=== PATIENT | female | born 1985 | race Caucasian/White ===

== ENCOUNTER 2018-08-07 20:06 | Inpatient (IN) | payer OTHER ==
[~2018-08-07] VITALS: Ht 167.6 cm; Wt 63.0 kg
--- NOTE | ~2018-08-07 | HC ---
[facility] [place] [address] CONSULTATION Name: DIANE SALEH Room #: 356-P ADM IN M.R.#: [id number] Admission: 08/08/18 Attend Phys: Ju Meehan Discharge: Date of : 89 Report #: [id number] THIS REPORT FOR: //name// CC: Ju Meehan NO PCP DATE OF SERVICE: 08/09/2018 CHIEF COMPLAINT: Ulceration of the right lower extremity with surrounding cellulitis. HISTORY OF PRESENT ILLNESS: This is a 33-year-old female patient who was seen and evaluated in the Emergency Department and she complained initially of insect bite that had become infected. However, it has later been reported that she was suffering from suicidal ideations and then tented an overdose injecting methamphetamine and heroin into her right calf. She has developed fever, cellulitis and ulceration. I have been asked to see her with regard to wound care. ALLERGIES: To TYLENOL, AMOXICILLIN and PERTUSSIS VACCINE. MEDICATIONS: On her MAR reviewed. PAST MEDICAL HISTORY: Per history of anxiety, depression, ADHD and PTSD, asthma, gestational diabetes and scoliosis. SOCIAL HISTORY: Positive for cigarettes. No recent alcohol use some drug use noted. Although she is not very forthcoming regarding this at this time. REVIEW OF SYSTEMS: CONSTITUTIONAL: The patient does complain of fever or chills. Denies recent weight loss. NEUROLOGICAL: The patient denies focal weakness, numbness or tingling. EYES: The patient denies visual changes, redness or drainage. EARS, NOSE AND THROAT: The patient denies earache, nasal drainage or sore throat. CARDIOVASCULAR: The patient denies chest pain, palpitation or diaphoresis. PULMONARY: The patient denies cough or shortness of breath. GASTROINTESTINAL: The patient denies nausea, vomiting or abdominal pain. ORTHOPEDIC: The patient complains to have severe pain, swelling, and redness of her right lower extremity and small amount on her left lower extremity. PHYSICAL EXAMINATION: VITAL SIGNS: At this time include pulse 63, respiratory rate of 20, blood pressure 128/53 and temperature 97.6. GENERAL: This is a chronically ill-appearing female patient who appears to be [address] [address] CONSULTATION Name: DELFINODIANE Room #: 356-P ADM IN M.R.#: [id number] Admission: 08/08/18 Attend Phys: Ju Meehan Discharge: Date of : 89 Report #: [id number] in no obvious distress. HEENT: Head is normocephalic. Nose and throat clear. NECK: Supple. LUNGS: Clear. ABDOMEN: Soft. Bowel sounds present. EXTREMITIES: Demonstrate easily palpable pulses. She has significant swelling, redness and an ascending lymphangitis involving the right calf area extending up to the medial thigh. There is also small area of induration appears to be perhaps a small puncture wound on the left calf. There is not significant cellulitis in this area. There is also a large circular ulceration that is relatively clean and granular. CLINICAL IMPRESSION: Ulceration of the right calf and some significant cellulitis and ascending lymphangitis secondary to self-injection, reportedly of heroin and methamphetamine. RECOMMENDATIONS: At this point in time, we will recommend local care with topical Silvadene and Xeroform gauze to the open area. No compression would be appropriate at this time. She remains on empiric antibiotic therapy. I do appreciate being asked to see her in consultation. <ELECTRONICALLY SIGNED> By: Don Winter MD 08/12/18 [id number] Don Winter MD /nt
--- NOTE | ~2018-08-07 | HC ---
[facility] [place] [address] CONSULTATION Name: JOANN QUINTANA Room #: 356-P ADM IN M.R.#: [id number] Admission: 08/08/18 Attend Phys: Ju Meehan Discharge: Date of : 89 Report #: [id number] THIS REPORT FOR: //name// CC: Ju Meehan NO PCP DATE OF SERVICE: 08/08/2018 HISTORY OF PRESENT ILLNESS: This lady was admitted with abscess on her right lower limb. She had endorsed that this could have been a bug bite or ingrown hair that became infected. She has significant cellulitis. Admits to opioid use lately because of the severe pain. The patient has had longstanding depression, anxiety, opioid dependence and polysubstance abuse. In recent weeks to months, there has been increasing depression and thoughts of self-harm. Admittedly, she attempted an overdose in the last 2 months and essentially was successful only "I just woke up a few days later in a pool of urine and blood." So, she did not get any medical treatment or psychiatric treatment afterwards. PAST PSYCHIATRIC HISTORY: Longstanding depression and anxiety. Prozac has worked best for her. Also, there has been significant use of anxiolytics in the past including clonazepam and alprazolam. With respect to opioid dependence, significant history of using Subutex in a medication assisted program. FAMILY HISTORY: There is maybe some psychopathology informally. ALLERGIES: AMOXICILLIN, TYLENOL, AUGMENTIN, PERTUSSIS VACCINE. CURRENT MEDICATIONS: Include detox regimen. PAST MEDICAL HISTORY: Cellulitis. SOCIAL HISTORY: She currently has a fiance, a who over the summer was taken from her based on past involvement with DFS. The patient emphasizes that she was sober throughout the , was not even on any kind of opioid replacement at that time as she had tapered off beforehand. The patient's children are all in custody. She has limited contact with them and feels disowned from her family. All constitute ongoing stressors with severity of depression. MENTAL STATUS EXAMINATION: female, casually dressed, depressed mood, anxious. Normal rate and rhythm of speech. No formal thought disorder. Suicidal ideation without current intent, plan or homicidal ideation. No hallucinations, no delusions. Insight and judgment fair. DIAGNOSES: Major depressive disorder, recurrent, severe; generalized anxiety [address] [address] CONSULTATION Name: JOANN QUINTANA Room #: [address] [place] [address] IN M.R.#: [id number] Admission: 08/08/18 Attend Phys: Ju Meehan Discharge: Date of : 89 Report #: [id number] disorder, opioid dependence, polysubstance abuse. RECOMMENDATIONS: Restart Prozac at 20 mg as it has worked for her move in the past. It is also a prophylactic medicine when it comes to managing anxiety. In short term, we will have some scheduled Klonopin and p.r.n. Ativan, but perhaps down the road she would not be on these. Agree with either opioid detox or simply management of pain for a few days in the hope that she will be getting in to start an opioid replacement program at week's end. If suicidal ideations improve significantly by Tuesday, it is possible she can keep the appointment with Dr. Yip. She has also been through rehab before and has found this to be a good experience, so this is something she would consider again. By: [id number] David Torres MD /nt
--- NOTE | ~2018-08-07 | 2DMMODE ---
[facility] [address] [place] [address] 2 D/M-MODE ECHOCARDIOGRAM Name: LILIANJOANN Schwartz Room #: 356-P ADM IN M.R.#: [id number] Admission: 08/08/18 Attend Phys: Ju Bazzi Discharge: Date of : 89 Date of Service: 08/09/18 1247 Report #: [id number] THIS REPORT FOR: //name// APPROVED REPORT Study performed: 08/09/2018 07:53:54 EXAM: Comprehensive 2D, Doppler, and color-flow Echocardiogram Patient Location: Bedside Room #: [facility] Status: routine BSA: 1.71 HR: 92 bpm BP: 109/46 mmHg Rhythm: NSR Other Information Study Quality: Adequate Technically limited study due to limited patient cooperation. Indications Bacteremia. Hx: IV drug abuse 2D Dimensions RVDd: 39.66 mm IVSd: 8.25 (7-11mm) LVOT Diam: 20.85 (18-24mm) LVDd: 49.85 mm PWd: 9.27 (7-11mm) Ascending Ao: 25.76 (22-36mm) LVDs: 32.79 (25-40mm) Aortic Root: 27.79 mm Volumes Left Atrial Volume (Systole) Single Plane 4CH: 29.32 mL Single Plane 2CH: 29.49 mL LA ESV Index: 21.00 mL/m2 LV Strain GL Strain(%): 0.00 Aortic Valve AoV Peak Lul.: 1.66 m/s AO Peak Gr.: 10.99 mmHg LVOT Max P.52 mmHg LVOT Max V: 1.17 m/s BRIT Vmax: 2.42 cm2 [facility] [address] [place] [address] 2 D/M-MODE ECHOCARDIOGRAM Name: JOANN QUINTANA Room #: 356-P [facility]#: [id number] Admission: 08/08/18 Attend Phys: Ju Benavides [facility] Discharge: Date of : 89 Date of Service: 08/09/18 1247 Report #: [id number] Mitral Valve E/A Ratio: 2.0 MV Decel. Time: 208.68 ms MV E Max Lul.: 0.96 m/s MV A Lul.: 0.49 m/s MV PHT: 60.52 ms IVRT: 41.52 ms Pulmonary Valve PV Peak Lul.: 1.07 m/s PV Peak Gr.: 4.57 mmHg Pulmonary Vein P Vein S: 0.67 m/s P Vein D: 0.82 m/s P Vein S/D Ratio: 0.82 Tricuspid Valve TR Peak Lul.: 2.69 m/s RAP Estimate: 5.00 mmHg TR Peak Gr.: 29.01 mmHg PA Pressure: 34.00 mmHg Left Ventricle The left ventricle is normal size. There is normal LV segmental wall motion. There is normal left ventricular wall thickness. Left ventricular systolic function is normal. LVEF is 55%. The left ventricular diastolic function is normal. Right Ventricle The right ventricle is normal size. The right ventricular systolic function is normal. Atria The left atrium size is normal. The right atrium size is normal. Aortic Valve The aortic valve is normal in structure. No aortic regurgitation is present. There is no aortic valvular stenosis. Mitral Valve The mitral valve is normal in structure. There is no mitral valve regurgitation noted. No evidence of mitral valve stenosis. Tricuspid Valve The tricuspid valve is normal in structure. Mild tricuspid [facility] [address] [place] [address] 2 D/M-MODE ECHOCARDIOGRAM Name: JOANN QUINTANA Room #: 356-P [facility] IN ..#: [id number] Admission: 08/08/18 Attend Phys: Ju Bazzi Discharge: Date of : 89 Date of Service: 08/09/18 1247 Report #: [id number] regurgitation. Estimated PAP is 35mmHg. Pulmonic Valve The pulmonary valve is normal in structure. Mild pulmonic regurgitation. Great Vessels The aortic root is normal in size. The ascending aorta is normal in size. IVC is normal in size and collapses >50% with inspiration. Pericardium There is no pericardial effusion. <Conclusion> Left ventricular systolic function is normal. There is normal LV segmental wall motion. LVEF is 55%. Normal diastolic function The aortic valve is normal in structure. No aortic regurgitation or stenosis The mitral valve is normal in structure. No mitral valve regurgitation. Mild tricuspid regurgitation. Estimated pulmonary artery pressure of 35mmHg. There is no pericardial effusion. <ELECTRONICALLY SIGNED> By: Rodolfo Rose MD, FACC 08/09/18 [phone] Rodolfo Rose MD, FACC /INF
[2018-08-07 20:36] VITALS: BP 101/48
[2018-08-07] MEDS ORDERED: XANAX1 MG PO (21:09)
[2018-08-07] MEDS ORDERED: CLONAZEPAM 1 MG1 M1 PO (21:09)
[2018-08-07] MEDS ORDERED: ACCUNEB SO1.25 MG/1 INH (21:10)
[2018-08-07] MEDS ORDERED: ADDERALL 30 MG30 MG PO (21:10)
[2018-08-07 21:37] LABS: URINE BILIRUBIN NEGATIVE (Negative); URINE BLOOD 1+ (Negative); URINE CLARITY CLEAR; URINE COLOR YELLOW; URINE GLUCOSE-RANDOM* NEGATIVE (Negative); URINE KETONES NEGATIVE (Negative); URINE LEUKOCYTES-REFLEX NEGATIVE (Negative); URINE NITRITE-REFLEX NEGATIVE (Negative); URINE PROTEIN (DIPSTICK) 2+ (Negative); URINE SPECIFIC GRAVITY 1.025 (1.005-1.035); URINE UROBILINOGEN 0.2 E.U./dl (0.2-1.0)
[2018-08-07 21:43] LABS: AMP/METHAMP POSITIVE (Negative); BARBITURATES Negative (Negative); BENZODIAZEPINES POSITIVE (Negative); COCAINE Negative (Negative); METHADONE Negative (Negative); OPIATES POSITIVE (Negative); PCP Negative (Negative)
[2018-08-07 21:47] LABS: HYALINE CASTS 0-3 Few /LPF (None Seen); MUCUS 0-3 Light strn/LPF (None Seen); SQUAMOUS 4-10 Moderate /LPF (0-3)
[2018-08-07 21:48] LABS: AMORPHOUS URATES Few /LPF (None Seen); BACTERIA-REFLEX 1-9 Few /HPF (None Seen); URINE RBC 3-10 Few /HPF (0-2); URINE WBC-REFLEX 0-5 Rare /HPF (0-5)
[2018-08-07 22:42] LABS: HEMOGLOBIN 11.6 gm/dL (12.0-15.0); MCH 28.6 pg (26.0-34.0); MCHC 34.3 g/dL (28.0-37.0); MCV 83.4 fL (80.0-100.0); PLATELET COUNT 228 thou/uL (150-400); RBC 4.07 mil/uL (4.20-5.00); RDW 17.5 % (10.5-14.5); WBC 13.6 thou/uL (4.0-11.0)
[2018-08-07 22:48] LABS: CALCIUM 8.5 mg/dL (8.5-10.1); CREATININE 0.9 mg/dL (0.6-1.0)
[2018-08-07 22:54] LABS: ALBUMIN 2.2 g/dL (3.4-5.0); TOTAL BILIRUBIN 0.8 mg/dL (<0.1-1.0); TOTAL PROTEIN 6.5 g/dL (6.4-8.2)
[2018-08-07 23:29] LABS: ABSOLUTE NEUTROPHILS 12.9 thou/uL (1.4-8.2)
[2018-08-07 23:30] LABS: PLATELET ESTIMATE NORMAL; POLYCHROMASIA OCCASIONAL
[2018-08-08 01:35] VITALS: BP 109/61
[2018-08-08 01:51] VITALS: BP 109/61
[2018-08-08 02:05] VITALS: BP 100/59
[2018-08-08 07:21] VITALS: BP 87/48
[2018-08-08 15:50] VITALS: BP 83/45
[2018-08-08 19:18] VITALS: BP 90/50
[2018-08-09 04:10] VITALS: BP 104/52
[2018-08-09 05:54] LABS: HEMATOCRIT 32.3 % (37.0-47.0); HEMOGLOBIN 10.6 gm/dL (12.0-15.0); MCHC 32.9 g/dL (28.0-37.0); MCV 85.1 fL (80.0-100.0); RBC 3.8 mil/uL (4.20-5.00); RDW 17.6 % (10.5-14.5); WBC 9.9 thou/uL (4.0-11.0)
[2018-08-09 07:26] VITALS: BP 109/46
[2018-08-09 11:40] VITALS: BP 101/44
[2018-08-09 15:51] VITALS: BP 129/70
[2018-08-09 16:07] LABS: HEP B SURFACE Ab(ANTI-HBS Reactive (()); HEPATITIS B SURFACE AG Negative (Negative); HEPATITIS C VIRUS AB 8.5 (0.0-0.9); HIV ANTIBODY Non Reactive (Non Reactive)
[2018-08-09 19:28] VITALS: BP 128/53
[2018-08-10 05:00] VITALS: BP 114/59
[2018-08-10 13:23] VITALS: BP 103/57
[2018-08-10 17:36] VITALS: BP 108/56
[2018-08-10 20:35] VITALS: BP 111/62
[2018-08-11 06:35] VITALS: BP 104/58
[2018-08-11 07:55] VITALS: BP 111/69
[2018-08-11 12:58] VITALS: BP 116/64
[2018-08-11 16:44] VITALS: BP 116/56
[2018-08-11 19:12] VITALS: BP 106/53
[2018-08-12 05:00] VITALS: BP 107/58
[2018-08-12 07:44] VITALS: BP 105/55
[2018-08-12 12:08] VITALS: BP 109/55
[2018-08-12 19:02] VITALS: BP 111/63
[2018-08-13 03:29] VITALS: BP 102/47
[2018-08-13 07:06] VITALS: BP 99/46
[2018-08-13 13:55] LABS: ABSOLUTE NEUTROPHILS 5.4 thou/uL (1.4-8.2); BASOPHILS 1.2 % (0.0-2.0); EOSINOPHILS 0.6 % (0.0-3.0); HEMATOCRIT 34.3 % (37.0-47.0); HEMOGLOBIN 11.5 gm/dL (12.0-15.0); LYMPHOCYTES 14.9 % (24.0-44.0); MCH 28.3 pg (26.0-34.0); MCHC 33.4 g/dL (28.0-37.0); MCV 84.8 fL (80.0-100.0); MONOCYTES 3.3 % (1.0-8.0); PLATELET COUNT 564 thou/uL (150-400); RBC 4.05 mil/uL (4.20-5.00); RDW 16.8 % (10.5-14.5); WBC 6.7 thou/uL (4.0-11.0)
[2018-08-13 14:01] LABS: CALCIUM 9.1 mg/dL (8.5-10.1); CREATININE 0.7 mg/dL (0.6-1.0); POTASSIUM 4.3 mmol/L (3.5-5.1)
[2018-08-13 16:37] VITALS: BP 106/49
[2018-08-13 19:16] VITALS: BP 114/60
[2018-08-14 08:50] VITALS: BP 127/57
[2018-08-14 15:33] VITALS: BP 107/64
[2018-08-14 20:10] VITALS: BP 107/64
[2018-08-15 04:25] VITALS: BP 91/50
[2018-08-15 05:50] LABS: ABSOLUTE NEUTROPHILS 4.8 thou/uL (1.4-8.2); BASOPHILS 0.7 % (0.0-2.0); EOSINOPHILS 0.3 % (0.0-3.0); HEMATOCRIT 34.1 % (37.0-47.0); HEMOGLOBIN 11.7 gm/dL (12.0-15.0); LYMPHOCYTES 22.6 % (24.0-44.0); MCH 29.4 pg (26.0-34.0); MCHC 34.4 g/dL (28.0-37.0); MCV 85.2 fL (80.0-100.0); MONOCYTES 5.4 % (1.0-8.0); RDW 16.3 % (10.5-14.5); WBC 6.8 thou/uL (4.0-11.0)
[2018-08-15 05:51] LABS: PLATELET COUNT 674 thou/uL (150-400)
[2018-08-15 05:57] LABS: APTT 28.2 Seconds (24.5-32.8); PROTIME 10.8 Seconds (9.3-11.4)
[2018-08-15 06:00] LABS: CALCIUM 9.3 mg/dL (8.5-10.1); CREATININE 0.6 mg/dL (0.6-1.0); POTASSIUM 4.9 mmol/L (3.5-5.1)
[2018-08-15 10:54] VITALS: BP 87/48
[2018-08-15 16:16] VITALS: BP 98/55
[2018-08-15 19:55] VITALS: BP 105/68
== END 2018-08-15 20:20 | disposition left against medical advice (07) | DRG 872 ==
LOC: ER 20:06 → 3W 08-08 00:30 → EROBS 08-08 00:30 → EDBD 08-08 00:30 → 3W 08-08 02:30
PROVIDERS: Family Medicine; Hospitalist; Physician Assistant; Radiology Vascular & Interventional Radiology; Specialist
DX: A40.0 Sepsis due to streptococcus, group A (principal); F11.20 Opioid dependence, uncomplicated; L97.219 Non-pressure chronic ulcer of right calf with unspecified severity; L03.115 Cellulitis of right lower limb; L03.116 Cellulitis of left lower limb; L02.415 Cutaneous abscess of right lower limb; F32.9 Major depressive disorder, single episode, unspecified; F41.1 Generalized anxiety disorder; F19.10 Other psychoactive substance abuse, uncomplicated; J45.909 Unspecified asthma, uncomplicated; F17.210 Nicotine dependence, cigarettes, uncomplicated; F43.10 Post-traumatic stress disorder, unspecified; F90.9 Attention-deficit hyperactivity disorder, unspecified type; E87.6 Hypokalemia; I80.9 Phlebitis and thrombophlebitis of unspecified site; Z53.21 Procedure and treatment not carried out due to patient leaving prior to being seen by health care provider; Z88.1 Allergy status to other antibiotic agents; Z88.8 Allergy status to other drugs, medicaments and biological substances; Z80.0 Family history of malignant neoplasm of digestive organs; Z79.899 Other long term (current) drug therapy
CPT/HCPCS: 10879